=== PATIENT | male | born 1930 | race Caucasian/White ===

== ENCOUNTER 2016-09-29 12:27 | Inpatient (IN) | payer MEDICARE, OTHER ==
[2016-09-29] MEDS ORDERED: Acetaminophen 325 MG Tab PO PRN (12:34)
[2016-09-29] MEDS ORDERED: Enoxaparin 40 MG/0.4 ML Syringe SUBCUT ONE (12:39)
[2016-09-29] MEDS ORDERED: Polyethylene Glycol 3350 Powder 17 GM Packet PO PRN (12:53)
[2016-09-29] MEDS: fentaNYL 25 MCG/HR Transdermal Patch TRDERM SCH (13:43)
[2016-09-29] MEDS: Furosemide 40 MG/4 ML VIAL IV SCH (13:43)
--- NOTE | 2016-09-29 14:49 | PCM.HP ---
H&P History of Present Illness - General Date of Service: 09/29/16 Admit Problem/Dx: Admission Diagnosis/Problem Admission Diagnosis/Problem Fluid imbalance - History of Present Illness Initial Comments - Free Text/Narative: 86 yo male is admitted to acute care from the [facility] for CHF. Patient initially presented to the clinic for concerns of possible sinus infection but he was experiencing SOB and leg swelling. Weight is up 18 lb since 09/13/16. Leg swelling has been progressing over the last 3-4 weeks. SOB is constant. Denies coughing. No fevers or chills. PMH significant for prostate cancer and HTN. No previous CHF. BNP was found to be at 16,794. No hx of echo. Creatinine was up to 1.28. Blood counts were within normal limits. He is currently in treatment for his prostate cancer. Had an appointment with Dr. Thomson on 09/22 and they will be switching his Zometa to Xgeva and will be continuing his Degarelix. The last Zometa injection was 08/25 and the last Degarelix injection was 09/08. Next injections are planned for 10/06. - Related Data Allergies/Adverse Reactions: Allergies Allergy/AdvReac Type Severity Reaction Status Date / Time No Known Allergies Allergy Verified 08/12/15 19:46 Home Medications: Home Meds Losartan [Cozaar] 100 mg PO DAILY 08/12/15 [History] Calcium Carbonate/Vitamin D3 [Calcium 600 + Vit D Tablet] 2 tab PO DAILY [History] Furosemide [Lasix] 20 mg PO DAILY 09/29/16 [History] Polyethylene Glycol 3350 [MiraLAX] 17 gm PO DAILY PRN 09/29/16 [History] fentaNYL [Duragesic] 25 mcg TRDERM Q72H 09/29/16 [History] traMADol [Ultram] 50 mg PO Q4H PRN 09/29/16 [History] Past Medical History Cardiovascular History: Reports: CAD, Heart Failure, High Cholesterol, Hypertension, Other (See Below) Other Cardiovascular History: edema to lower extremities Respiratory History: Reports: SOB Musculoskeletal History: Reports: Back Pain, Chronic, Other (See Below) Other Musculoskeletal History: compression fracture of second lumbar vertebra Psychiatric History: Reports: Anxiety, Panic Attack Hematologic History: Reports: Other (See Below) Other Hematologic History: hypercalcemia Oncologic (Cancer) History: Reports: Bone, Prostate Social & Family History - Family History Family Medical History: Noncontributory - Tobacco Use Smoking Status *Q: Never Smoker - Caffeine Use Caffeine Use: Reports: Coffee - Recreational Drug Use Recreational Drug Use: No H&P Review of Systems - Review of Systems: Review Of Systems: See Below General: Denies: Fever, Chills HEENT: Reports: Post Nasal Drip. Denies: Headaches, Rhinitis, Sinus Congestion , Sore Throat Pulmonary: Reports: Shortness of Breath. Denies: Cough Cardiovascular: Reports: Edema. Denies: Chest Pain Exam - Exam Exam: See Below - Vital Signs Vital Signs: Last Vital Signs Temp 36.3 C 09/29/16 13:40 Pulse 94 09/29/16 13:40 Resp 18 09/29/16 13:40 BP 177/90 H 09/29/16 13:40 Pulse Ox 96 09/29/16 13:40 Weight: 83.37 kg - Exam General: Alert, Oriented HEENT: Conjunctiva Clear, Hearing Intact, Mucosa Moist & [place], Nares Patent, Posterior Pharynx Clear, TMs Clear Lungs: Normal Respiratory Effort, Decreased Breath Sounds, Crackles (decreased breath sounds and rales noted to the lung bases bilaterally). No: Rhonchi, Wheezing Cardiovascular: Regular Rate, Regular Rhythm, Normal S1, Normal S2 Extremities: Pedal Edema (3+ edema to lower extremities bilaterally ) Skin: Warm, Dry Neuro Extensive - Mental Status: Alert, Oriented x3, Normal Mood/Affect, Normal Cognition, Memory Intact Psychiatric: Alert, Normal Affect, Normal Mood - Patient Data Lab Results Last 24 hrs: Laboratory Results - last 24 hr 09/29/16 Range/Units 11:26 Troponin I 0.080 H* (<=0.056) ng/mL *Q Meaningful Use (ADM) - VTE *Q VTE Criteria *Q: - Stroke *Q Stroke Criteria *Q: - AMI *Q AMI Criteria *Q: Problem List Initiated/Reviewed/Updated: Yes Orders Last 24hrs: Active Orders 24 hr Category Date Time Status Patient Status [ADT] Routine ADT 09/29/16 12:29 Active Patient Status [ADT] Routine ADT 09/29/16 12:34 Ordered Height and Weight [RC] DAILY Care 09/29/16 12:34 Ordered Intake and Output [RC] QSHIFT Care 09/29/16 12:36 Ordered Oxygen Therapy [RC] PRN Care 09/29/16 12:36 Ordered Up ad Doris [RC] ASDIRECTED Care 09/29/16 12:34 Ordered Vital Signs [RC] Q4H Care 09/29/16 12:34 Ordered Regular Diet [DIET] Diet 09/29/16 Lunch Ordered CBC W/O DIFF,HEMOGRAM [HEME] Q3D Lab 09/30/16 07:00 Ordered CBC W/O DIFF,HEMOGRAM [HEME] Q3D Lab 10/03/16 07:00 Ordered CBC W/O DIFF,HEMOGRAM [HEME] Q3D Lab 10/06/16 07:00 Ordered CBC W/O DIFF,HEMOGRAM [HEME] Q3D Lab 10/09/16 07:00 Ordered CBC W/O DIFF,HEMOGRAM [HEME] Q3D Lab 10/12/16 07:00 Ordered CBC W/O DIFF,HEMOGRAM [HEME] Q3D Lab 10/15/16 07:00 Ordered CBC W/O DIFF,HEMOGRAM [HEME] Q3D Lab 10/18/16 07:00 Ordered RENAL FUNCTION PANEL,RFP [CHEM] Routine Lab 09/30/16 05:11 Ordered TROPONIN I [CHEM] Routine Lab 09/29/16 19:00 Ordered Acetaminophen [Tylenol] Med 09/29/16 12:34 Ordered 650 mg PO Q4H PRN Calcium Carbonate/Vitamin D3 [Calcium Carbonate/Vitamin Med 09/30/16 08:00 Active D 1250 MG-200 Unit] 2 tab PO DAILY Furosemide [Lasix] Med 09/29/16 13:22 Active 40 mg IV DAILY Losartan [Cozaar] Med 09/30/16 08:00 Ordered 100 mg PO DAILY Polyethylene Glycol 3350 [MiraLAX] Med 09/29/16 12:53 Ordered 17 gm PO DAILY PRN fentaNYL [Duragesic] Med 09/29/16 13:00 Ordered 25 mcg TRDERM Q72H traMADol [Ultram] Med 09/29/16 12:53 Ordered 50 mg PO Q4H PRN Code Status [Resuscitation Status] Routine Resus Stat 09/29/16 12:42 Ordered Medication Orders Acetaminophen (Tylenol) 650 mg PO Q4H PRN PRN Reason: analgesia/fever Calcium Carbonate (Calcium Carbonate/Vitamin D 1250 Mg-200 Unit) 2 tab PO DAILY TERI Fentanyl (Duragesic) 25 mcg TRDERM Q72H [facility] Last Admin: 09/29/16 13:43 Dose: 25 mcg Furosemide (Lasix) 40 mg IV DAILY [facility] Last Admin: 09/29/16 13:43 Dose: 40 mg Losartan Potassium (Cozaar) 100 mg PO DAILY [facility] Polyethylene Glycol (Miralax) 17 gm PO DAILY PRN PRN Reason: Constipation Tramadol HCl (Ultram) 50 mg PO Q4H PRN PRN Reason: Pain Assessment/Plan Comment:: CHF Prostate cancer HTN Elevated troponin 1. Lasix 40 mg IV 2. Checked troponin which was slightly elevated at 0.08. Will recheck in 6 hours (7:00 PM). May related to high BNP. 3. Daily weights 4. I & O 5. Full code 6. Lovenox 40 mg SQ for DVT prophylaxis 7. Obtain EKG 8. Recheck renal panel with albumin in the AM
[2016-09-29] MEDS ORDERED: Metoprolol Tartrate 5 MG/5 ML SDV IVPUSH ONE ×2 (16:19→17:09)
[2016-09-29] MEDS ORDERED: Nitroglycerin 0.4 MG Tab.SL SL PRN (16:23)
--- NOTE | 2016-09-29 17:05 | PN ---
Progress Note for JUSTYNA URIAS Date: 09/29/2016 Room #: VM.204 SUBJECTIVE: An 86-year-old seen at the request of nursing after an acute onset of chest pain around 4 p.m., lasted 2 to 3 minutes, when they called me, he said it was an 8 to 9/10. He got a nitroglycerin, pain improved down to 3/10 and at about that same time, he converted into atrial fibrillation with RVR with rates into the 150s. There was some pauses and a PVC, but he had not converted. He was admitted earlier today for heart failure. His blood pressure had been significantly elevated like 177/90. He got IV Lasix 40 mg and he has had 900 of urine output so far. He denies any short of breath. He was not requiring oxygen, but has been placed on him now. He has no history of heart failure, no history of coronary artery disease, but he does have a history of prostate cancer and is undergoing treatments. Otherwise, he also received Lovenox today 40 mg. OBJECTIVE: Vital Signs: Weight 83.37 kg, heart rate is 136, blood pressure 143/88, respiratory rate 18, O2 of 96 on 2 L. General: He is in no acute distress. Heart: Regular rate and rhythm with tachycardia. Actually, on telemetry it looks more like flutter, but on his EKGs is clearly atrial fibrillation. Lungs: Clear to auscultation bilaterally without crackles or wheezes. Abdomen: Has positive bowel sounds. Soft and nontender. Extremities: Warm and dry. He has some support stockings in place, but still has 2 to 3+ edema to the knee. Mental Status: He is alert and orientated x3. LABORATORY DATA: Lab work did show a mildly elevated troponin at 0.08. ASSESSMENT: 1. An episode of chest pain which started with atrial fibrillation with rapid ventricular response, improved greatly with nitroglycerin, but rates are still rapid. We will try a dose of IV Lopressor. We will repeat lab work now including a troponin, D-dimer, Mag, and TSH. Discussed with the patient transfer to [place]. He would really not want to do that right now, but understands that if his situation gets worse, then he would want that. We will see how lab work looks. We will see if we can get his heart rate under control with Lopressor. 2. Atrial fibrillation with rapid ventricular response, new onset. No history. 3. Acute heart failure exacerbation. No echo available to say whether this is systolic or diastolic. We can review his records again from [place]. 4. 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 PLAN: The patient will receive a dose of IV Lopressor 5 mg. We will await lab results. We will continue with telemetry. We will continue with nitroglycerin as needed for chest pain. He is code level 1. Again discussed with him, he would want full treatment. MKA: 09/29/2016 16:31:06 MODL: 09/29/2016 16:59:06 /[id number]
[2016-09-29] MEDS ORDERED: Iopamidol 612 MG/ML 100 ML Bottle IVPUSH ONE (17:22)
[2016-09-29] MEDS ORDERED: Sodium Chloride 0.9% 100 ML IV SCH (17:30)
[2016-09-29] MEDS ORDERED: ALPRAZolam 0.25 MG Tab PO STA (18:05)
[2016-09-29] MEDS: Metoprolol Succinate 50 MG Tab.ER PO SCH (19:49)
[2016-09-29] MEDS ORDERED: Non-Formulary Medication 1 Each (Calcium Carbonate/Vitamin D3 [Calcium 600 + Vit D Tablet] PO SCH ×2 (20:00)
[2016-09-29] MEDS: traMADol 50 MG Tab PO PRN (21:06)
[2016-09-29] MEDS ORDERED: Morphine 2 MG/ML Syringe IVPUSH PRN (23:26)
[2016-09-29] MEDS: ALPRAZolam 0.25 MG Tab PO PRN (23:39)
[2016-09-29] MEDS ORDERED: Morphine 2 MG/ML Syringe IV PRN (23:46)
[2016-09-29] MEDS ORDERED: Morphine 4 MG/ML Syringe IVPUSH PRN (23:48)
[2016-09-30] MEDS: Morphine 4 MG/ML Syringe IVPUSH PRN ×2 (00:07→03:42)
[2016-09-30] MEDS: traMADol 50 MG Tab PO PRN ×3 (01:18→21:03)
[2016-09-30] MEDS: ALPRAZolam 0.25 MG Tab PO PRN ×2 (04:03→21:04)
[2016-09-30] MEDS: Calcium Carbonate/Vitamin D3 1250 MG-200 Unit Tab PO SCH (07:28)
[2016-09-30] MEDS: Furosemide 40 MG/4 ML VIAL IV SCH (07:29)
[2016-09-30] MEDS ORDERED: Losartan 50 MG Tab PO SCH (08:00)
[2016-09-30] MEDS ORDERED: Furosemide 40 MG/4 ML VIAL IV SCH (08:00)
[2016-09-30] MEDS ORDERED: Potassium Chloride 20 MEQ Tab.ER PO ONE (08:32)
--- NOTE | 2016-09-30 09:23 | PN ---
Progress Note for JUSTNYA URIAS Date: 09/30/2016 Room #: VM.204 SUBJECTIVE: This is hospital day #2 for an 86-year-old admitted with an acute heart failure exacerbation with lower extremity edema and shortness of breath. He has diuresed 1.9 L, but he does not feel like his leg swelling has improved. His breathing is improved. He is no longer short of breath. Around 4 p.m., he went into atrial fibrillation with RVR and had crushing chest pain. This was resolved by nitroglycerin and then 2 doses of IV Lopressor. He converted back to a sinus rhythm. He has been in sinus ever since. He underwent a CT PE protocol, which is negative. Unfortunately, he fell in the bathroom injuring his right posterior ribs. He states that the pain is not too bad. They have been icing it. He did use some morphine during the night for it. He is normally on fentanyl and tramadol for pain from compression fractures from metastatic prostate cancer. He is denying any shortness of breath or breathing problems this morning. He has no chest pain since his episode yesterday afternoon. His creatinine which was 1.2 in the clinic did go up to 1.5 today. He has been on Lasix 40 mg IV and he got a 2nd dose this morning. OBJECTIVE: Vital signs: His temperature is 97.9, weight is 84.3 kg, actually up slightly from admission. I would suspect that might not be entirely accurate. Pulse 67, blood pressure 139/73, respiratory rate 20, O2 93 on room air. General: He is in no acute distress. Cardiac: His heart is in regular rate and rhythm without murmur. Respiratory: Lungs sounds are clear to auscultation in the upper areas, but the lower lobes have bilateral faint crackles. Abdomen: Has positive bowel sounds. Soft and nontender. Extremities: Warm and dry. Still has 2+ edema to the knee. He has slight coolness to his extremities due to swelling. I am unable to feel a pulse. They are both equal in temperature castorena. They had been covered up and he has good cap refill in both toes. Mental Status: He is alert and orientated x3. Musculoskeletal: On exam, he has tenderness below the right scapula over the upper ribs posteriorly. LABORATORY DATA: Lab work reviewed from today did show him to have a normal white count 8.8, hemoglobin 12.4, platelets 353. Sodium 140, potassium 3.7, chloride 105, bicarb 25, BUN 29, creatinine 1.5. Mag was 2 yesterday and normal, calcium 7.6, albumin low at 2.1. TSH was normal yesterday at 3.38. Troponin did trend up to 0.0466, which is expected. This was all discussed with him. ASSESSMENT: 1. Acute heart failure exacerbation with no documented previous history of heart failure. We will need to get an outpatient echo. 2. Atrial fibrillation with rapid ventricular rates, resolved. He will continue on Toprol 50 mg daily. 3. Essential hypertension. Blood pressures had been quite elevated. They are coming down nicely now. 4. Probable [id number] myocardial infarction, exacerbated by the heart failure and atrial fibrillation. Discussed with the patient. He probably has underlying coronary artery disease. He is hoping that he will not need to be transferred to [place]. I am going to start him on a baby aspirin. I am going to hold off on any statins given his advanced age and prostate cancer. I am also going to stop his losartan due to renal insufficiency. 5. Renal insufficiency, likely due to diuresis. Also with some IV contrast. We will hold off on further doses of IV Lasix after today and repeat lab work tomorrow. 6. Metastatic prostate cancer. He is on hormonal treatments. He is not due for any until next week. He is also on Xgeva due to higher calcium. His calcium level is actually mildly low, but that is likely related to his low albumin. 7. Moderate malnutrition related to prostate cancer, probably contributing somewhat to his swelling. 8. Chest pain, ruled out for pulmonary embolism with CT. This has resolved. Nitroglycerin was available. 9. Chronic anxiety. Xanax is available p.r.n. 10.Rib pain from fall. We will do a plain chest x-ray today. We will continue his pain management. We will continue ice. We will get him up in working with PT and apply a Lidoderm patch. 11.Mild anemia. PLAN: At this point, the patient will continue acute cares. I will repeat lab work tomorrow. I will give him 1 dose of oral potassium today. We will wrap his legs with Bernabe wraps to improve swelling. Anticipate he will need at least 1 or 2 more nights of acute care and potentially swing bed. Dr. Bond to assume care over the weekend. Patient did well with PT will not require swing bed. MKA: 09/30/2016 08:35:33 MODL: 09/30/2016 09:09:09 /[id number] MTDD
[2016-09-30] MEDS: Lidocaine 5% 700 MG Patch TOP SCH (09:30)
[2016-09-30] MEDS ORDERED: Calcium Carbonate 750 MG Tab.Chew PO PRN (18:51)
[2016-09-30] MEDS: Metoprolol Succinate 50 MG Tab.ER PO SCH (19:40)
[2016-09-30] MEDS: Remove Patch-LIDODERM TRDERM SCH (20:01)
[2016-10-01] MEDS: Calcium Carbonate/Vitamin D3 1250 MG-200 Unit Tab PO SCH (08:24)
[2016-10-01] MEDS: Lidocaine 5% 700 MG Patch TOP SCH (08:24)
[2016-10-01] MEDS: traMADol 50 MG Tab PO PRN ×3 (09:07→21:57)
[2016-10-01] MEDS: Furosemide 40 MG/4 ML VIAL IV SCH ×2 (10:01→15:49)
[2016-10-01] MEDS: Enoxaparin 40 MG/0.4 ML Syringe SUBCUT SCH (10:01)
--- NOTE | 2016-10-01 10:08 | PN ---
Progress Note for JUSTYNA URIAS Date: 10/01/2016 Room #: VM.204 SUBJECTIVE: An 86-year-old male, admitted on 09/29/2016 with shortness of breath and weight gain. He had reported an 18-pound weight gain over the past month. He was diagnosed with congestive heart failure. He was given some Lasix, but he has not really diuresed much. He did go into atrial fibrillation with RVR. This was converted with IV Lopressor. His monitor has been stable since then. He denies chest pain or shortness of breath at this time. He does complain of increasing peripheral edema. He also notes his abdomen seems to be more distended and bloated. Appetite is good. No change in bowel or bladder habits. He has a history of metastatic prostate cancer, on chemotherapy for this. He has also had an elevated troponin during hospital stay, possibly secondary to non-ST UT related to his congestive heart failure. He declined transfer to [place]. He did have a CT scan of his chest because of an elevated D-dimer. This was negative for PE, but was consistent with congestive heart failure. He did have a fall in the hospital a day ago and had sustained some right-sided axillary and posterior chest wall pain. OBJECTIVE: General: He is alert. He is afebrile. Vital Signs: Weight today is 186, admission weight was 183. Blood pressure is 127/80, respirations are 16, pulse of 67 and regular, O2 sats 96% on 2 L. Heart: Regular rate and rhythm. Lungs: Clear to auscultation. Abdomen: Obese, enlarged. No masses palpable. Nontender. Extremities: Warm and dry. They have 3 to 4+ bilateral pitting edema to the knees. LABORATORY DATA: White count is 8.8, hemoglobin 12.5. Electrolytes are normal. Creatinine is 1.6. Glucose 126. His troponin today is 0.291. This has decreased from yesterday. BNP not available. ASSESSMENT: 1. Congestive heart failure. 2. Significant peripheral edema. 3. Atrial fibrillation with RVR - resolved. 4. Hypertension - improved. 5. Mild renal insufficiency. 6. Metastatic prostate cancer. PLAN: 1. We will continue the patient's Lovenox for DVT prophylaxis. 2. Add Lasix 40 mg IV b.i.d. 3. Monitor his lab and proBNP levels and monitor his condition. FM: 10/01/2016 09:32:46 MODL: 10/01/2016 10:01:15 /[id number]
[2016-10-01] MEDS: Morphine 4 MG/ML Syringe IVPUSH PRN (14:20)
[2016-10-01] MEDS: Metoprolol Succinate 50 MG Tab.ER PO SCH (19:55)
[2016-10-01] MEDS: Remove Patch-LIDODERM TRDERM SCH (20:02)
[2016-10-01] MEDS: ALPRAZolam 0.25 MG Tab PO PRN (21:58)
[2016-10-02] MEDS: Enoxaparin 40 MG/0.4 ML Syringe SUBCUT SCH (07:37)
[2016-10-02] MEDS: Lidocaine 5% 700 MG Patch TOP SCH (07:37)
[2016-10-02] MEDS: traMADol 50 MG Tab PO PRN (07:37)
[2016-10-02] MEDS: Furosemide 40 MG/4 ML VIAL IV SCH (07:38)
[2016-10-02] MEDS: Calcium Carbonate/Vitamin D3 1250 MG-200 Unit Tab PO SCH (07:38)
--- NOTE | 2016-10-02 10:50 | PN ---
Progress Note for JUSTYNA URIAS Date: 10/02/2016 Room #: VM.204 SUBJECTIVE: An 86-year-old white male, who has been admitted with edema and congestive heart failure and some mild renal insufficiency. His breathing is stable. He denies chest pain or shortness of breath. Yesterday, he was given scheduled doses of Lasix 40 mg IV, but his urine output still has been not increased. He has not lost any weight and his peripheral edema remains about the same. They have been placing Bernabe wraps on his legs for compression. He continues to complain of pain in his right side that he blames of a fall. Appetite has been good. No change in bowel or bladder habits. Recently diagnosed with metastatic prostate cancer with lesions in his spine. He is on injections and a few medications for this. OBJECTIVE: General: He is alert. He is afebrile. Vital Signs: Pulse is 64 and regular, blood pressure is 146/70, respirations are 20, O2 sats 95%. Weight is 187. INR was reviewed. Heart: Regular rate and rhythm. Lungs: Clear to auscultation. Back: The spinous processes are nontender. Abdomen: Soft, nontender. No masses palpable. Extremities: Remain 2 to 4+ pitting peripheral edema. Warm and dry. LABORATORY DATA: White count is 8.8, hemoglobin 13.3. Electrolytes are normal. Creatinine is stable at 1.6. Glucose 128. ProBNP yesterday was 15,107. ASSESSMENT: 1. Congestive heart failure. 2. Significant peripheral edema. 3. Hypertension. 4. Mild renal insufficiency, stable. 5. Metastatic prostate cancer. PLAN: We will give him a dose of 80 mg IV Lasix this afternoon and see if the higher dose improves his urine output. Next, obtain a CT scan of the abdomen and pelvis to make sure there is not any obstructing mass or problem mobilizing his peripheral edema. Repeat lab in the morning. Continue to monitor his condition. Dr. Liza Moreno will resume care tomorrow. FM: 10/02/2016 09:51:56 MODL: 10/02/2016 10:37:12 /[id number]
[2016-10-02] MEDS: Morphine 4 MG/ML Syringe IVPUSH PRN ×5 (11:19→23:48)
[2016-10-02] MEDS: fentaNYL 25 MCG/HR Transdermal Patch TRDERM SCH (13:11)
[2016-10-02] MEDS ORDERED: Furosemide 40 MG/4 ML VIAL IV ONE (14:00)
[2016-10-02] MEDS: Metoprolol Succinate 50 MG Tab.ER PO SCH (20:12)
[2016-10-02] MEDS: Remove Patch-LIDODERM TRDERM SCH (20:14)
[2016-10-02] MEDS: ALPRAZolam 0.25 MG Tab PO PRN (21:02)
[2016-10-03] MEDS: Morphine 4 MG/ML Syringe IVPUSH PRN ×2 (03:40→20:05)
[2016-10-03] MEDS: Calcium Carbonate/Vitamin D3 1250 MG-200 Unit Tab PO SCH (07:39)
[2016-10-03] MEDS: Enoxaparin 40 MG/0.4 ML Syringe SUBCUT SCH (07:39)
[2016-10-03] MEDS: Lidocaine 5% 700 MG Patch TOP SCH (07:39)
[2016-10-03] MEDS ORDERED: Furosemide 40 MG/4 ML VIAL IV SCH (08:00)
[2016-10-03] MEDS ORDERED: Magnesium Hydroxide 400 MG/5 ML Susp 30 ML Cup PO PRN (08:30)
[2016-10-03] MEDS ORDERED: Magnesium Hydroxide 400 MG/5 ML Susp 30 ML Cup PO ONE (08:31)
--- NOTE | 2016-10-03 09:08 | PN ---
Progress Note for JUSTYNA URIAS Date: 10/03/2016 Room #: VM.204 SUBJECTIVE: This is hospital day #5 for an 86-year-old admitted with an acute diastolic heart failure exacerbation. The patient states his breathing has been fine, but he has really had no improvement with swelling. He has had no weight loss. He has had minimal out, as he had 1900 in and 2 L out. Yesterday, he had 1600 in and 24 L out, on increasing doses of Lasix up to 40 in the morning and 80 in the afternoon. His blood pressures have continued to run high. He was requiring a little bit of oxygen this morning. He states he has not really been up and moving around. Swelling is down with the Bernabe wraps at night, but it is worse again after they are taken off by morning. CT was negative for pulmonary embolism and also CT of the abdomen was negative for any obstructing masses. He does not have known metastatic prostate cancer. Otherwise, urine output has been good. He has not had a bowel movement in a couple of days, but no stomach pain. He did have some new pleural effusions noted on the CT. OBJECTIVE: Vital Signs: His weight 84.8 kg. Temperature 97.4, pulse 68, blood pressure 150/85, respiratory rate 16, and O2 87 on room air. General: He is in no acute distress. Heart: Regular rate and rhythm. S1, S2, without murmur. Lungs: Sounds are clear to auscultation bilaterally without crackles or wheezes. Abdomen: Positive bowel sounds. Extremities: He has 3+ edema up to the knee. He has 1 to 2+ edema on the thigh. Mental Status: He is alert and orientated x3. LABORATORY DATA: Lab work reviewed shows white count normal, hemoglobin 13.3, and platelets 340. Sodium 141, potassium 4.1, chloride 105, bicarb 30, BUN 31, creatinine 1.7, calcium 8, alkaline phosphatase 126, and albumin 2. ASSESSMENT: 1. Krxtt-br-vyhctfv diastolic heart failure exacerbation, still with leg swelling and some hypoxia. We will put him on 60 mg IV b.i.d. today. We will have him up working with RT to see if he needs home oxygen. 2. History of atrial fibrillation. This has resolved. He is now on Toprol 50 mg daily. We will discontinue telemetry. 3. Essential hypertension. Blood pressures have improved. We will continue to monitor. 4. Inz-UY-vzdzootfw myocardial infarction. Troponin is trending down. 5. Renal insufficiency with some IV contrast, given his creatinine is up to 1.7, we will recheck tomorrow. 6. Metastatic prostate cancer, on hormonal treatments. He is due this week. He also has some hypocalcemia, so his Xgeva dose may be on hold. 7. Moderate malnutrition. 8. Chronic anxiety. 9. Rib pain from fall, improved with the Lidoderm patch. 10.Mild anemia. PLAN: At this point, the patient will continue acute cares. He is extended beyond the 96-hour window, but he has showed some steady improvement, but no worsening of his symptoms. He has also declined transfer to [place]. At this point, we will continue with acute cares by increasing Lasix, institute a fluid restriction, and do a home O2 evaluation. He also was seen by PT, who did not feel that he would require swing bed. MKA: 10/03/2016 08:36:54 MODL: 10/03/2016 09:02:47 /[id number]
[2016-10-03] MEDS: traMADol 50 MG Tab PO PRN (14:53)
[2016-10-03] MEDS: Furosemide 40 MG/4 ML VIAL IV SCH (14:53)
[2016-10-03] MEDS: Metoprolol Succinate 50 MG Tab.ER PO SCH (20:04)
[2016-10-03] MEDS: Remove Patch-LIDODERM TRDERM SCH (20:15)
[2016-10-03] MEDS: ALPRAZolam 0.25 MG Tab PO PRN (22:25)
[2016-10-04 06:04] VITALS: BP 139/70
[2016-10-04] MEDS: Lidocaine 5% 700 MG Patch TOP SCH (07:24)
[2016-10-04] MEDS: Enoxaparin 40 MG/0.4 ML Syringe SUBCUT SCH (07:25)
[2016-10-04] MEDS: Calcium Carbonate/Vitamin D3 1250 MG-200 Unit Tab PO SCH (07:25)
[2016-10-04] MEDS: Furosemide 40 MG/4 ML VIAL IV SCH (07:25)
[2016-10-04] MEDS ORDERED: Cholecalciferol (Vitamin D3) 1,000 Unit Tab PO SCH (08:45)
[2016-10-04] MEDS ORDERED: Calcium Carbonate/Vitamin D3 1250 MG-200 Unit Tab PO SCH (20:00)
--- NOTE | 2016-10-05 00:56 | DISCH ---
PRIMARY DISCHARGE DIAGNOSES: 1. An acute on chronic diastolic heart failure exacerbation. No echo available, but outpatient echo is being arranged. 2. Significant lower extremity edema due to heart failure, ruled out for obstructive lesions with CT. 3. 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 4. Chronic pain related to metastatic prostate cancer as well as a fall and some right-sided rib pain requiring some IV morphine, but doing better and able to transition over to oral pain medications. He is also on a fentanyl patch chronically. 5. Essential hypertension with elevated blood pressures at times but controlled on discharge. Norvasc was stopped in the clinic due to swelling. His losartan was on hold due to renal insufficiency. Hytrin will be added on discharge. 6. Non ST-elevation myocardial infarction with troponin trending down. He had chest pain with atrial fibrillation and RVR. This resolved after 2 doses of IV Lopressor and he has had no further events on the Toprol. He has also been started on an aspirin 81 mg daily and statin was not started due to his age and comorbidities of metastatic prostate cancer. DVT prophylaxis during his stay was given with Lovenox. He was ruled out for a pulmonary embolism with a CT of the chest. He otherwise had renal insufficiency during his stay with creatinine, which was previously 1.28 in the clinic, up to 1.8 on discharge. Initially, his diuresis was not that aggressive due to renal insufficiency, so we have been monitoring that closely. He also had moderate malnutrition with an albumin of 2.0 on discharge. We had started him on a high-protein diet and scheduled 15 g of protein daily. 7. Chronic anxiety with claustrophobia. He did receive Xanax prior to his CTs. 8. Mild anemia. Hemoglobins remained stable throughout his stay and was 13.3 on discharge. REASON FOR ADMISSION: On the date of admission, 86-year-old male had come to the clinic. He had gained 18 pounds. He had some increased leg swelling and shortness of breath. His proBNP initially was [id number]. He had no known history of heart failure or coronary artery disease. He was admitted, he was placed on IV diuresis and telemetry. Troponin initially was mildly elevated at 0.08. That afternoon, he went into atrial fibrillation with RVR. Rates were up to the 140s. His troponin level did increase and peaked out at 0.466 on the th and went down to 0.29 on the 19th. He got 2 doses of IV Lopressor and his atrial fibrillation resolved. He had no further chest pain or trouble breathing. We had discussed with him the possibility of transfer to [place]. However, he declined. He was doing reasonably okay with diuresis, but his fluid intake had been up to 2 L, so he had not really lost any weight. Then, on the day prior to discharge, I increased his Lasix up to 60 b.i.d., put him on a fluid restriction. He was down 1800 mL and his weight dropped 3 pounds, so he was feeling more optimistic and hopeful. We did a bladder scan. He was only having 240 mL and had to void, so I did not think he had residual. We held his losartan and blood pressure on discharge was actually excellent at 139/70, but he did have some higher readings as well. Otherwise, we did discuss adding Hytrin and we did that and also we had him up and moving with Respiratory Therapy. He did not qualify for oxygen on discharge. He had 1 reading 2 days prior to discharge, that was 87 on room air. I felt that was probably due to sleeping in bed and getting some pleural effusions from that. His pleural effusions did show up on his CT that he had of the abdomen, but not on his initial chest x-rays, so a repeat chest x-ray was done, which showed the patient to have some developing effusions at both lung bases. They were small. Otherwise, the patient was seen by Physical Therapy who thought he was doing quite well and did not require a skilled stay for therapies other than OT who was helping him to put on his support stockings, which were helping the leg swelling. Therefore, he will qualify for a couple of days of swing bed for teaching to use the support stockings and also he will be getting his nutrition teaching along with IV Lasix 60 mg twice daily to continue until discharge. PHYSICAL EXAMINATION: Vital Signs: On discharge, weight 83 kg, temperature 97.7, pulse 72, blood pressure 139/70, respiratory rate 20, O2 saturation of 94% on room air. General: He is in no acute distress. Heart: Regular rate and rhythm. Lungs: Sounds are clear to auscultation bilaterally without crackles or wheezes. Abdomen: Positive bowel sounds, soft and nontender. Extremities: Warm and dry. He has 2+ edema to the knee. Mental Status: He is alert and orientated x3. DISCHARGE PLANS/INSTRUCTIONS: To repeat lab work on and go home likely with Home Health then. Greater than 30 minutes spent on the discharge process. MKA: 10/04/2016 11:54:47 MODL: 10/05/2016 00:49:02 /[id number]
== END 2016-10-04 09:10 | disposition swing bed (61) | DRG 281 ==
LOC: VM.MS 12:29
PROVIDERS: ADMIT Physician Assistant; ATTEND Internal Medicine
DX: I11.0 Hypertensive heart disease with heart failure (principal); I21.4 Non-ST elevation (NSTEMI) myocardial infarction; C79.51 Secondary malignant neoplasm of bone; E44.0 Moderate protein-calorie malnutrition; I50.33 Acute on chronic diastolic (congestive) heart failure; C61 Malignant neoplasm of prostate; N28.9 Disorder of kidney and ureter, unspecified; Z68.28 Body mass index [BMI] 28.0-28.9, adult; F41.9 Anxiety disorder, unspecified; F40.240 Claustrophobia; D64.9 Anemia, unspecified; I48.0 Paroxysmal atrial fibrillation; R07.81 Pleurodynia; W18.39XA Other fall on same level, initial encounter; Y93.E8 Activity, other personal hygiene; Y92.231 Patient bathroom in hospital as the place of occurrence of the external cause; Z79.899 Other long term (current) drug therapy
CPT/HCPCS: 36415; 71010; 71020; 71275; 74176; 80048; 80053; 80069; 83735; 83880; 84443; 84484; 85025; 85027; 85379; 93005; 94760; 97161-GP; 97165-GO; A9270-GY; J1650; J1940; J2270; J3490; J7050; Q9967

== ENCOUNTER 2016-10-04 08:50 | Inpatient (IN) | payer MEDICARE, OTHER ==
[2016-10-04] MEDS ORDERED: Calcium Carbonate 750 MG Tab.Chew PO PRN (11:39)
[2016-10-04] MEDS ORDERED: traMADol 50 MG Tab PO PRN (11:39)
[2016-10-04] MEDS ORDERED: Sodium Chloride 0.9% 100 ML IV SCH (11:39)
[2016-10-04] MEDS ORDERED: Polyethylene Glycol 3350 Powder 17 GM Packet PO PRN (11:39)
[2016-10-04] MEDS ORDERED: Acetaminophen 325 MG Tab PO PRN (11:39)
[2016-10-04] MEDS ORDERED: ALPRAZolam 0.25 MG Tab PO PRN (11:39)
[2016-10-04] MEDS ORDERED: Magnesium Hydroxide 400 MG/5 ML Susp 30 ML Cup PO PRN (11:39)
[2016-10-04] MEDS: Furosemide 40 MG/4 ML VIAL IV SCH (14:47)
[2016-10-04] MEDS: Calcium Carbonate/Vitamin D3 1250 MG-200 Unit Tab PO SCH (20:36)
[2016-10-04] MEDS: Terazosin 1 MG Cap PO SCH (20:36)
[2016-10-04] MEDS: Metoprolol Succinate 50 MG Tab.ER PO SCH (20:37)
[2016-10-04] MEDS: Acetaminophen/oxyCODONE 325-5 MG Tab PO PRN (20:38)
[2016-10-04 20:39] VITALS: BP 138/75
[2016-10-05] MEDS: Cholecalciferol (Vitamin D3) 1,000 Unit Tab PO SCH (07:31)
[2016-10-05] MEDS: Lidocaine 5% 700 MG Patch TOP SCH (07:31)
[2016-10-05] MEDS: Furosemide 40 MG/4 ML VIAL IV SCH ×2 (07:32→14:11)
[2016-10-05] MEDS: Aspirin 81 MG Tab.Chew PO SCH (07:32)
[2016-10-05] MEDS: Calcium Carbonate/Vitamin D3 1250 MG-200 Unit Tab PO SCH ×2 (07:32→19:33)
[2016-10-05] MEDS ORDERED: Enoxaparin 40 MG/0.4 ML Syringe SUBCUT SCH (08:00)
[2016-10-05] MEDS ORDERED: fentaNYL 25 MCG/HR Transdermal Patch TRDERM SCH (13:00)
[2016-10-05] MEDS: Terazosin 1 MG Cap PO SCH (19:33)
[2016-10-05] MEDS: Metoprolol Succinate 50 MG Tab.ER PO SCH (19:34)
[2016-10-05] MEDS: Acetaminophen/oxyCODONE 325-5 MG Tab PO PRN (22:22)
[2016-10-06] MEDS: Cholecalciferol (Vitamin D3) 1,000 Unit Tab PO SCH (10:10)
[2016-10-06] MEDS: Calcium Carbonate/Vitamin D3 1250 MG-200 Unit Tab PO SCH (10:10)
[2016-10-06] MEDS: Lidocaine 5% 700 MG Patch TOP SCH (10:10)
[2016-10-06] MEDS: Aspirin 81 MG Tab.Chew PO SCH (10:10)
[2016-10-06] MEDS: Furosemide 40 MG/4 ML VIAL IV SCH (10:11)
--- NOTE | 2016-10-07 04:55 | DISCH ---
PRIMARY DISCHARGE DIAGNOSES: 1. Acute unspecified heart failure exacerbation with no history of heart failure. Plan for echocardiogram next week. 2. Significant lower extremity edema due to heart failure and malnutrition from prostate cancer. 3. 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 4. Chronic pain related to metastatic prostate cancer and compression fractures and also some right-sided rib pain from a fall, improving. He is on a fentanyl patch and tramadol chronically. He did take occasional oxycodone and he has that available at home. 5. Essential hypertension, improved. Losartan had been stopped due to renal insufficiency. Toprol and Hytrin started. 6. Non ST-elevation ME probably due to heart failure with atrial fibrillation and rapid ventricular rates. Troponin trended down. He had no further chest pain. 7. Episode of atrial fibrillation with rapid ventricular rates, converted back to sinus rhythm with no further issue, is ruled out for pulmonary embolism with CT PE protocol. 8. Chronic anxiety and claustrophobia. He had Xanax available p.r.n. 9. Mild anemia. His hemoglobin was stable at 11.9 on discharge. 10.Renal insufficiency, likely related to the CT with IV contrast given and also IV diuresis. Creatinine up to 2.0 on discharge, but urine output was excellent at 1.9-2.5 L over the last 3-4 days. REASON FOR ADMISSION: On the date of admission, this 86-year-old male had been on acute care for heart failure exacerbation. BNP was 15,000. He was doing well, but had not really diuresed significantly, so he had been on increasing doses of Lasix. We instituted fluid restriction. He started to lose some weight. He lost over 4-5 pounds with a discharge weight pending. However, his weight on the was 82.9 kg. Otherwise, he had no shortness of breath. He was up with RT and did not require oxygen on discharge. He states that if he walked too far, he did feel a little short of breath, but none at rest. He had no further chest pain. His leg swelling had improved. Otherwise, his creatinine again unfortunately did go up to 2 on 10/05. His albumin was down to 1.9. He was started on protein powder. Rest of his electrolytes looked okay other than glucose 142. PHYSICAL EXAMINATION: Vital signs: Discharge vitals included temperature 98.2, pulse 76, blood pressure 138/75, respiratory rate 20, O2 96% on room air. General: He is in no acute distress. Heart: Regular rate and rhythm. S1, S2 without murmur. Lungs: Sounds are clear to auscultation bilaterally without crackles or wheezes. Abdomen: Positive bowel sounds, soft, and nontender. Extremities: Warm and dry. He has 2+ edema to the knee and llanes. Mental status: He is alert and orientated x3. Otherwise, on followup imaging, he was showing some mild pleural effusions. This is felt due to probably positioning with lying more in bed. His lungs were sounding clear on discharge and no further x-rays were needed. DISCHARGE PLANS AND INSTRUCTIONS: He will see Dr. Moreno in the clinic on 10/21 as previously scheduled with blood test prior, which included his prostate cancer testing. He will also have an echo on 10/11. He will be followed by Home Health who will do a BMP on Monday. He will get his Xgeva and prostate cancer shot today at the clinic. Losartan will continue to be on hold. Hytrin will be continued at bedtime. He will also be on Toprol 50 mg daily. He will continue calcium and vitamin D supplements. He will increase protein intake in his diet 15 g twice daily. He will also be on aspirin 81 mg daily for his heart. During his stay, the patient was also treated with Lovenox for DVT prophylaxis. He otherwise did not get started on a statin because of his known history of prostate cancer and advanced age. Otherwise, he did have bladder scans which did not show any elevated postvoid residuals. The patient will require Home Health on discharge for teaching of new onset heart failure and monitoring of medications. Nursing will instruct him to do blood pressures, weights, and vital signs and do ongoing teaching and to ensure medication compliance and questions will be answered with multiple medication changes. [id number] occurred on 10/06. I will periodically review this plan of care. The patient was also followed by PT and OT while in the hospital but may not require any further therapies at home at the current time as long as he is able to don his support stockings with the help of his . The patient is considered homebound due to new onset of heart failure, leaving his home, requires taxing effort due to edema of his lower extremities. He has also had a fall risk and actually had a fall while in the hospital. Greater than 30 minutes spent. MKA: 10/06/2016 08:55:09 MODL: 10/07/2016 04:44:31 /[id number]
== END 2016-10-06 10:20 | disposition home health service (06) | DRG 281 ==
LOC: VM.MS 09:10
PROVIDERS: ADMIT Internal Medicine; ATTEND Internal Medicine
DX: I11.0 Hypertensive heart disease with heart failure (principal); I21.4 Non-ST elevation (NSTEMI) myocardial infarction; C79.51 Secondary malignant neoplasm of bone; E46 Unspecified protein-calorie malnutrition; I50.33 Acute on chronic diastolic (congestive) heart failure; C61 Malignant neoplasm of prostate; G89.3 Neoplasm related pain (acute) (chronic); R07.81 Pleurodynia; I48.91 Unspecified atrial fibrillation; D64.9 Anemia, unspecified; Z68.28 Body mass index [BMI] 28.0-28.9, adult; F40.240 Claustrophobia; N28.9 Disorder of kidney and ureter, unspecified; W19.XXXA Unspecified fall, initial encounter; Z91.81 History of falling; Y92.239 Unspecified place in hospital as the place of occurrence of the external cause; F41.9 Anxiety disorder, unspecified
CPT/HCPCS: 36415; 80069; 97535-GO; A9270-GY; J1650; J1940

== ENCOUNTER 2016-10-08 14:46 | Emergency (ER) | payer MEDICARE, OTHER ==
[2016-10-08 14:55] VITALS: BP 149/81
[2016-10-08] MEDS ORDERED: Sodium Phosphate,Monobasic/Sodium Phosphate,Dibasic Enema 133 ML Bottle RECTAL ONE (15:04)
--- NOTE | 2016-10-10 08:47 | ER ---
Date of Service: 10/08/2016 SUBJECTIVE: Khoa presents to the emergency room with complaints of inability to have a bowel movement. The patient states that he has not had a bowel movement for approximately 2 days. He was hospitalized with congestive heart failure and was diuresed. He also had episode of atrial fibrillation with RVR, converted back to a sinus rhythm and was discharged earlier this week. He states that he has not been experiencing any chest pain or shortness of breath, but states that his only complaint is that he is unable to have a bowel movement. PAST MEDICAL HISTORY: 1. Congestive heart failure. 2. Atrial fibrillation with RVR. 3. Chronic kidney disease. 4. Chronic constipation. 5. Metastatic prostate cancer. 6. Essential hypertension. 7. Anxiety. 8. Anemia of chronic disease. MEDICATIONS: Please see nurse's notes. ALLERGIES: NKDA. REVIEW OF SYSTEMS: General: Denies any fever, chills, chest pain, shortness of breath, melena, hematochezia or hematemesis. Again, he states that he has had no bowel movement for approximately 2 days. He does complain of diffuse abdominal cramping. PHYSICAL EXAMINATION: General: This is an 86-year-old male patient, in no acute distress. Vital Signs: Blood pressure is 149/81, heart rate is 81, temperature is 35.9, respiratory rate 16, O2 saturations 93%. Skin: Warm, pink, and dry. HEENT: Head is normocephalic, atraumatic. Mouth, oral mucosa is moist. Lungs: Clear to auscultation. Heart: Regular rate and rhythm. Abdomen: Distended and soft, but nontender. There is no hepatosplenomegaly noted. There is no masses noted. Extremities: Does have a 2+ edema which is chronic for the patient. EMERGENCY ROOM COURSE: The patient was initially given a fleets enema which was unsuccessful. Following this he was given a soapsuds enema. He did have a large bowel movement and stated that and his discomfort had resolved. ASSESSMENT: Acute on chronic constipation. PLAN: In addition to his current bowel regimen, we will start him on Senna Plus to help with his bowel movements. I did advise him to drink some more fluids as he does appear to be possibly mildly over diuresed. All questions were answered. MWK: 10/09/2016 23:19:25 MODL: 10/10/2016 02:44:58 /[id number]
== END 2016-10-08 15:50 | disposition home or self-care (01) ==
LOC: VM.ED 14:46
DX: K59.09 Other constipation (principal); I48.91 Unspecified atrial fibrillation; I13.0 Hypertensive heart and chronic kidney disease with heart failure and stage 1 through stage 4 chronic kidney disease, or unspecified chronic kidney disease; I50.9 Heart failure, unspecified; N18.9 Chronic kidney disease, unspecified; F41.9 Anxiety disorder, unspecified; Z86.79 Personal history of other diseases of the circulatory system
CPT/HCPCS: 99283; A9270

== ENCOUNTER 2017-08-08 07:40 | Emergency (ER) | payer MEDICARE, OTHER ==
[2017-08-08] MEDS ORDERED: Sodium Chloride 0.9% 10 ML Syringe FLUSH PRN (08:07)
[2017-08-08 09:21] LABS: CHLORIDE,CL 93 mmol/L (98-107); SODIUM,NA 133 mmol/L (136-145)
--- NOTE | 2017-08-08 10:30 | EDM.PDOC ---
ED HPI GENERAL MEDICAL PROBLEM - General Chief Complaint: General Stated Complaint: ER Time Seen by Provider: 08/08/17 07:50 Source of Information: Reports: Patient, Family () History Limitations: Reports: No Limitations - History of Present Illness INITIAL COMMENTS - FREE TEXT/NARRATIVE: Pt. presents to ER via EMS. states that the pt. was somnolent and difficult to arouse this AM. He has a history of ESRD and is due for a dialysis run this afternoon. Pt. states that they flew in to [place] last night from [place] after spending the winter months there. She states that the pt. has issues with anxiety and apparently gave the pt. 2 xanax tablets at approx. midnight last night. She states that he has been afebrile and no cough or shortness of breath. Pt. is alert with strong verbal stimuli and offers no complaints. He states that he feels tired, but denies any other signs or symptoms. Onset: Today - Related Data Allergies Allergy/AdvReac Type Severity Reaction Status Date / Time No Known Allergies Allergy Verified 08/08/17 10:38 Home Meds: Home Meds Calcium Carbonate/Vitamin D3 [Calcium 600 + Vit D Tablet] 2 tab PO DAILY [History] Polyethylene Glycol 3350 [MiraLAX] 17 gm PO DAILY PRN 09/29/16 [History] fentaNYL [Duragesic] 25 mcg TRDERM Q72H 09/29/16 [History] traMADol [Ultram] 50 mg PO Q4H PRN 09/29/16 [History] Aspirin 81 mg PO WITHBREAKFAST #30 tab.chew 10/06/16 [Rx] Furosemide [Lasix] 40 mg PO BID #60 tablet 10/06/16 [Rx] Magnesium Hydroxide [Milk of Magnesia] 30 ml PO BID PRN #1 cup 10/06/16 [Rx] Metoprolol Succinate [Toprol XL] 50 mg PO BEDTIME #30 tab.er 10/06/16 [Rx] Terazosin [Hytrin] 1 mg PO BEDTIME #30 cap 10/06/16 [Rx] Past Medical History Cardiovascular History: Reports: CAD, Heart Failure, High Cholesterol, Hypertension, Other (See Below) Other Cardiovascular History: edema to lower extremities Respiratory History: Reports: SOB Genitourinary History: Reports: Acute Renal Failure, Diabetic Nephropathy Musculoskeletal History: Reports: Back Pain, Chronic, Other (See Below) Other Musculoskeletal History: compression fracture of second lumbar vertebra Psychiatric History: Reports: Anxiety, Panic Attack Hematologic History: Reports: Other (See Below) Other Hematologic History: hypercalcemia Oncologic (Cancer) History: Reports: Bone, Prostate Social & Family History - Family History Family Medical History: Noncontributory - Tobacco Use Smoking Status *Q: Never Smoker Second Hand Smoke Exposure: No - Caffeine Use Caffeine Use: Reports: Coffee - Recreational Drug Use Recreational Drug Use: No ED ROS GENERAL - Review of Systems Review Of Systems: See Below Constitutional: Reports: Malaise, Fatigue. Denies: Fever, Chills, Diaphoresis HEENT: Reports: No Symptoms Respiratory: Reports: No Symptoms Cardiovascular: Reports: No Symptoms Endocrine: Reports: No Symptoms GI/Abdominal: Reports: No Symptoms : Reports: No Symptoms Musculoskeletal: Reports: Other (peripheral edema) Skin: Reports: Pallor, Dryness Neurological: Reports: Weakness Psychiatric: Reports: No Symptoms Hematologic/Lymphatic: Reports: No Symptoms Immunologic: Reports: No Symptoms ED EXAM, GENERAL - Physical Exam Exam: See Below Exam Limited By: No Limitations General Appearance: Alert, WD/WN, No Apparent Distress Eye Exam: Bilateral Eye: EOMI, Normal Fundi, Normal Inspection, PERRL Throat/Mouth: Normal Inspection, Normal Lips, Normal Teeth, Normal Gums, Normal Oropharynx, Normal Voice, No Airway Compromise Head: Atraumatic, Normocephalic Neck: Normal Inspection, Supple, Non-Tender, Full Range of Motion Respiratory/Chest: No Respiratory Distress, No Accessory Muscle Use, Chest Non- Tender, Crackles Cardiovascular: Normal Peripheral Pulses, Regular Rate, Rhythm, No Edema, No Gallop, No JVD, No Murmur, No Rub Peripheral Pulses: 2+: Dorsalis Pedis (L), Dorsalis Pedis (R), 3+: Radial (L), Radial (R) GI/Abdominal: Normal Bowel Sounds, Soft, Non-Tender, No Organomegaly, No Distention, No Abnormal Bruit, No Mass (Male) Exam: Deferred Rectal (Males) Exam: Deferred Back Exam: Normal Inspection, Full Range of Motion, NT Extremities: Normal Range of Motion, Non-Tender, Normal Capillary Refill, Pedal Edema (3+), Pallor Neurological: Alert, Oriented, CN II-XII Intact, Normal Cognition, Normal Reflexes, No Motor/Sensory Deficits, Slow to Respond, Other (Somnolent, sleeping on the gurney, but alert to strong verbal stimuli.) Psychiatric: Normal Affect, Normal Mood Skin Exam: Warm, Dry, Intact, Pallor Lymphatic: No Adenopathy Course - Vital Signs Last Recorded V/S: Last Vital Signs Temp 36.5 C 08/08/17 07:45 Pulse 70 08/08/17 10:11 Resp 16 08/08/17 10:11 BP 112/67 08/08/17 10:11 Pulse Ox 96 08/08/17 10:11 - Orders/Labs/Meds Orders: Active Orders 24 hr Category Date Time Status EKG Documentation Completion [RC] STAT Care 08/08/17 08:08 Active Chest 1V Frontal [CR] Stat Exams 08/08/17 08:15 Taken CULTURE BLOOD [BC] Stat Lab 08/08/17 08:22 Received CULTURE BLOOD [BC] Stat Lab 08/08/17 08:30 Received Sodium Chloride 0.9% [Saline Flush] Med 08/08/17 08:07 Active 10 ml FLUSH ASDIRECTED PRN Blood Culture x2 Reflex Set [OM.PC] Stat Oth 08/08/17 08:09 Ordered Peripheral IV Insertion Adult [OM.PC] Routine Oth 08/08/17 08:08 Ordered Medication Orders Sodium Chloride (Saline Flush) 10 ml FLUSH ASDIRECTED PRN PRN Reason: Keep Vein Open Labs: Laboratory Tests 08/08/17 08/08/17 08/08/17 Range/Units 08:22 08:22 08:22 WBC 8.4 (4.0-10.0) x10^3/uL RBC 2.84 L (4.5-6.0) x10^6/uL Hgb 10.4 L (14.0-18.0) g/dL Hct 31.7 L (40.0-52.0) % MCV 111.6 H D (78.0-93.0) fL MCH 36.6 H (26.0-32.0) pg MCHC 32.8 (32.0-36.0) g/dL RDW Coeff of Nate 14.4 (10.0-15.0) % Plt Count 86 L D (130-400) x10^3/uL Add Manual Diff Yes Neutrophils % (Manual) 79 (50-80) % Band Neutrophils % 6 (0-6) % Lymphocytes % (Manual) 11 L (25-50) % Monocytes % (Manual) 1 L (2-11) % Eosinophils % (Manual) 3 (0-4) % Platelet Estimate Decreased L Macrocytosis 1+ slight H PT 11.2 (9.6-11.4) SEC INR 1.1 L (2.0-3.5) Sodium 133 L (136-145) mmol/L Potassium 4.1 (3.5-5.1) mmol/L Chloride 93 L (98-107) mmol/L Carbon Dioxide 26 (21-32) mmol/L Anion Gap 18.1 (10-20) mmol/L BUN 59 H (7-18) mg/dL Creatinine 5.1 H* D (0.70-1.30) mg/dL Est Cr Clr Drug Dosing TNP Estimated GFR (MDRD) 11 Glucose 111 H (74-106) mg/dL Lactic Acid (0.4-2.0) mmol/L Calcium 8.4 L D (8.5-10.1) mg/dL Corrected Calcium 9.28 (8.5-10.1) mg/dL Phosphorus 7.6 H (2.6-4.7) mg/dL Magnesium 2.3 (1.8-2.4) mg/dL Total Bilirubin 0.5 (0.2-1.0) mg/dL AST 20 (15-37) U/L ALT 23 (16-63) U/L Alkaline Phosphatase 72 (46-116) U/L Troponin I 0.184 H* (<=0.056) ng/mL C-Reactive Protein 3.7 H (<=0.9) mg/dL NT-Pro-B Natriuret Pep 78094 H (<=450) pg/mL Total Protein 5.5 L (6.4-8.2) g/dL Albumin 2.9 L (3.4-5.0) g/dL Globulin 2.6 Albumin/Globulin Ratio 1.12 Urine Color (YELLOW) Urine Appearance (CLEAR) Urine pH (5.0-8.0) Ur Specific Dix[place] Urine Protein (NEGATIVE) mg/dL Urine Glucose (UA) (NEGATIVE) mg/dL Urine Ketones (NEGATIVE) mg/dL Urine Occult Blood (NEGATIVE) Urine Nitrite (NEGATIVE) Urine Bilirubin (NEGATIVE) Urine Urobilinogen (0.2) EU/dL Ur Leukocyte Esterase (NEGATIVE) Urine RBC (NOT SEEN) /HPF Urine WBC (NOT SEEN) /HPF Ur Squamous Epith Cells (NEGATIVE) /HPF Amorphous Sediment Urine Bacteria (NEGATIVE) /HPF Urine Mucus (NEGATIVE) /LPF 08/08/17 08/08/17 Range/Units 08:22 09:15 WBC (4.0-10.0) x10^3/uL RBC (4.5-6.0) x10^6/uL Hgb (14.0-18.0) g/dL Hct (40.0-52.0) % MCV (78.0-93.0) fL MCH (26.0-32.0) pg MCHC (32.0-36.0) g/dL RDW Coeff of Nate (10.0-15.0) % Plt Count (130-400) x10^3/uL Add Manual Diff Neutrophils % (Manual) (50-80) % Band Neutrophils % (0-6) % Lymphocytes % (Manual) (25-50) % Monocytes % (Manual) (2-11) % Eosinophils % (Manual) (0-4) % Platelet Estimate Macrocytosis PT (9.6-11.4) SEC INR (2.0-3.5) Sodium (136-145) mmol/L Potassium (3.5-5.1) mmol/L Chloride (98-107) mmol/L Carbon Dioxide (21-32) mmol/L Anion Gap (10-20) mmol/L BUN (7-18) mg/dL Creatinine (0.70-1.30) mg/dL Est Cr Clr Drug Dosing Estimated GFR (MDRD) Glucose (74-106) mg/dL Lactic Acid 0.6 (0.4-2.0) mmol/L Calcium (8.5-10.1) mg/dL Corrected Calcium (8.5-10.1) mg/dL Phosphorus (2.6-4.7) mg/dL Magnesium (1.8-2.4) mg/dL Total Bilirubin (0.2-1.0) mg/dL AST (15-37) U/L ALT (16-63) U/L Alkaline Phosphatase (46-116) U/L Troponin I (<=0.056) ng/mL C-Reactive Protein (<=0.9) mg/dL NT-Pro-B Natriuret Pep (<=450) pg/mL Total Protein (6.4-8.2) g/dL Albumin (3.4-5.0) g/dL Globulin Albumin/Globulin Ratio Urine Color Dark yellow H (YELLOW) Urine Appearance Slightly cloudy H (CLEAR) Urine pH 5.5 (5.0-8.0) Ur Specific Dixie 1.010 Urine Protein 100 H (NEGATIVE) mg/dL Urine Glucose (UA) Negative (NEGATIVE) mg/dL Urine Ketones Negative (NEGATIVE) mg/dL Urine Occult Blood Negative (NEGATIVE) Urine Nitrite Negative (NEGATIVE) Urine Bilirubin Negative (NEGATIVE) Urine Urobilinogen 0.2 (0.2) EU/dL Ur Leukocyte Esterase Negative (NEGATIVE) Urine RBC 0-5 (NOT SEEN) /HPF Urine WBC Not seen (NOT SEEN) /HPF Ur Squamous Epith Cells Not seen (NEGATIVE) /HPF Amorphous Sediment Few Urine Bacteria Few H (NEGATIVE) /HPF Urine Mucus Rare H (NEGATIVE) /LPF Meds: Medications Generic Name Dose Route Start Last Admin Trade Name Freq PRN Reason Stop Dose Admin Sodium Chloride 10 ml 08/08/17 08:07 Saline Flush FLUSH ASDIRECTED PRN Keep Vein Open Departure - Departure Time of Disposition: 10:40 Disposition: DC/Tfer to [facility] 02 Clinical Impression: Altered mental status, unspecified, ESRD (end stage renal disease) on dialysis - Discharge Information Referrals: Liza Moreno DO [Primary Care Provider] - Forms: ED Department Discharge, Interfacility Transfer EMTALA - My Orders Last 24 Hours: My Active Orders 08/08/17 08:07 Sodium Chloride 0.9% [Saline Flush] 10 ml FLUSH ASDIRECTED PRN 08/08/17 08:08 EKG Documentation Completion [RC] STAT Peripheral IV Insertion Adult [OM.PC] Routine 08/08/17 08:09 Blood Culture x2 Reflex Set [OM.PC] Stat 08/08/17 08:15 Chest 1V Frontal [CR] Stat 08/08/17 08:22 CULTURE BLOOD [BC] Stat 08/08/17 08:30 CULTURE BLOOD [BC] Stat - Assessment/Plan Last 24 Hours: My Active Orders 08/08/17 08:07 Sodium Chloride 0.9% [Saline Flush] 10 ml FLUSH ASDIRECTED PRN 08/08/17 08:08 EKG Documentation Completion [RC] STAT Peripheral IV Insertion Adult [OM.PC] Routine 08/08/17 08:09 Blood Culture x2 Reflex Set [OM.PC] Stat 08/08/17 08:15 Chest 1V Frontal [CR] Stat 08/08/17 08:22 CULTURE BLOOD [BC] Stat 08/08/17 08:30 CULTURE BLOOD [BC] Stat Plan: Pt. will require dialysis which is not available here. He is too weak for outpatient dialysis. He will need to be observed with serial troponin-his elevated troponin could have a renal component. I spoke with Dr. Espinosa who accepts the pt.
[2017-08-08 10:52] VITALS: BP 122/78
== END 2017-08-08 10:49 | disposition short-term general hospital (02) ==
LOC: VM.ED 07:40
DX: R41.82 Altered mental status, unspecified (principal); I13.2 Hypertensive heart and chronic kidney disease with heart failure and with stage 5 chronic kidney disease, or end stage renal disease; I50.9 Heart failure, unspecified; N18.6 End stage renal disease; E11.21 Type 2 diabetes mellitus with diabetic nephropathy; E78.00 Pure hypercholesterolemia, unspecified
CPT/HCPCS: 36415; 71045; 80053; 81001; 83605; 83735; 83880; 84100; 84484; 85025; 85610; 86140; 87040; 93005; 99284-GF; 99285